=== PATIENT | female | born 1960 | race African-American/Black ===

== ENCOUNTER 2017-02-08 11:06 | Day surgery (SDC) | payer MEDICARE, OTHER ==
[~2017-02-08] VITALS: Ht 154.9 cm; Wt 118.2 kg
--- NOTE | ~2017-02-08 | OP ---
Record Of Operation [facility] [address] [place]. [address] NAME: ALEJO JONES : 64 STATUS : [facility]#: [id number] AGE: 56 ADM/REG DATE : 02/08/17 MR#: [id number] REPORT SERV DATE: 02/09/17 DICTATED BY: TOMER VALDOVINOS II DATE: 02/09/17 REPORT STATUS : Draft TRANSCRIBED BY: MODMigue DATE: 02/09/17 DATE OF PROCEDURE: 02/08/2017 PREOPERATIVE DIAGNOSES: 1. Chronic renal failure. 2. Failing left thigh AV graft with inability to receive dialysis. POSTOPERATIVE DIAGNOSES: 1. Chronic renal failure. 2. Failing left thigh AV graft with inability to receive dialysis. PROCEDURES: 1. Left thigh graftogram. 2. Percutaneous angioplasty of critical stenosis of venous anastomosis. ANESTHESIA: Local with MAC. IV FLUIDS: 200. ESTIMATED BLOOD LOSS: 10. CONTRAST: 30. BRIEF HISTORY: Ms. Jones presented today after an unsuccessful attempt at cannulation of the left thigh AV graft. She had a history of prolonged bleeding and she was unable to receive dialysis today secondary to poor flow within the graft. DETAILS OF PROCEDURE: She was taken to the operating room and placed in supine position on the table. Sedation was achieved, and the left thigh was prepped and draped in sterile fashion. We performed a puncture of the graft in the apex, inserted a 6-[place] sheath. Graftogram was performed demonstrating the arterial limb of the graft to be widely patent with no stenosis, and the venous outflow, however, at what appears to be the anastomosis, there was a critical stenosis of more than 90%. Beyond this, all the deep veins appear patent. I was then able to pass a wire through the stenosis. We brought a 6 mm cutting balloon into the field and percutaneous angioplasty was performed with a cutting balloon in all four quadrants. We then post dilated this area with a 7 mm standard balloon. Completion demonstrates an excellent result from angioplasty. This area is now widely patent. There was no further stenosis. There was no dissection or extravasation. At this point, she had a good thrill noted in the graft. We then removed all the wires and catheters and held manual pressure until hemostatic. At the end of procedure, the patient was stable. She tolerated it well. [place] Record Of Operation [facility] [address] [place] [address] NAME: ALEJO JONES : 64 STATUS : [facility] PAT#: [id number] AGE: 56 ADM/REG DATE : 02/08/17 MR#: [id number] REPORT SERV DATE: 02/09/17 DICTATED BY: TOMER VALDOVINOS II DATE: 02/09/17 REPORT STATUS : Draft TRANSCRIBED BY: SU DATE: 02/09/17 Tomer Valdovinos II, M.D. / [id number] CC: Yara Flores II, M.D.
[~2017-02-08 11:06] MED LIST: AMB10 PO; AMBIEN; AURYXIA210 MG PO; IBU-200200 MG PO; NEUR100 PO; NEURONTIN PO; NEXIUM40 PO; PENICILLN VK500 MG OR; PERCOCET 10/3251 TAB PO; PERCOCET1 TA4 PO; PHOSLO PO; PLAVIX PO; PR25 PO; PRILO PO; PRILOSEC40 MG PO; PROAIR HFA INH; RENVELA800 MG PO; ROCALTROL0.5 MCG PO; SENSIPAR; SENSIPAR30 M1 OR; SENSIPAR60 MG OR; SENTAB PO; SEVE800T PO
[2017-02-08 12:22] LABS: HEMOGLOBIN 9.4 g/dL (12.0-16.0)
[2017-02-08 12:24] LABS: HEMATOCRIT 28.6 % (36.0-48.0)
[2017-02-08 12:37] LABS: CHLORIDE, SERUM 105 MMOL/L (96-112); GLUCOSE, SERUM 79 MG/DL (60-99); POTASSIUM, SERUM 5.7 MMOL/L (3.5-5.3); SODIUM, SERUM 141 MMOL/L (135-148)
[2017-02-08 12:38] LABS: BUN (BLOOD UREA NITROGEN) 60 MG/DL (6-23); CALCIUM, SERUM 8.4 MG/DL (8.5-10.4); CO2 (CARBON DIOXIDE) 27 MMOL/L (24-34); GFR AFRICAN AMERICAN 3 ML/MIN (>=60); GFR NON AFRICAN AMERICAN 3 ML/MIN (>=60)
== END 2017-02-08 16:20 | disposition home or self-care (01) ==
LOC: SDC 11:06
PROVIDERS: Surgery
PROC: 067Y3ZZ Dilation of Lower Vein, Percutaneous Approach (ICD-10-PCS; principal; 2017-02-08 12:45)
DX: T82.858A Stenosis of other vascular prosthetic devices, implants and grafts, initial encounter (principal); I12.0 Hypertensive chronic kidney disease with stage 5 chronic kidney disease or end stage renal disease; N18.6 End stage renal disease; J44.9 Chronic obstructive pulmonary disease, unspecified; G47.33 Obstructive sleep apnea (adult) (pediatric); K21.9 Gastro-esophageal reflux disease without esophagitis; Z99.2 Dependence on renal dialysis; Z79.02 Long term (current) use of antithrombotics/antiplatelets; Z79.899 Other long term (current) drug therapy
CPT/HCPCS: 36902; 80048; 82962; 85014; 85018; 93005; C1725; C1769; C1894; J0690; J2250; J3010; Q9967